=== PATIENT | female | born 1940 | race Caucasian/White ===

== ENCOUNTER 2022-10-18 17:08 | Inpatient (IN) | payer OTHER ==
[2022-10-18] MEDS ORDERED: TETANUS AND DIPHTHERIA TOXOID 0.5 ML DISP.SYRIN IM ONE (18:28)
[2022-10-18] MEDS ORDERED: DIPHTH,PERTUSS(ACELL),TET 0.5 ML DISP.SYRIN IM ONE (20:09)
[2022-10-18 20:24] LABS: BASO % 0.2 % (0-2.0); EOS % 2.1 % (0-4.5); LYMPH % 24.7 % (8-40); MCH 31.5 pg (25.7-33.7); MCHC 34.2 g/dl (32.0-36.0); MEAN CELL VOLUME 91.9 fl (80-96); MEAN PLT VOLUME 7.9 fl (7.5-11.1); MONO % 10.1 % (3.8-10.2); NEUT % 62.9 % (42.8-82.8); PLATELET COUNT 161 10^3/uL (134-434); RBC 4.46 M/mm3 (3.60-5.2); RDW 13.9 % (11.6-15.6); WHITE BLOOD COUNT 7.2 K/mm3 (4.0-10.0)
[2022-10-18] MEDS ORDERED: MELATONIN 5 MG TABLETS PO ONE (20:35)
[2022-10-18 20:37] LABS: POTASSIUM 4.9 mmol/L (3.5-5.1)
[2022-10-18] MEDS ORDERED: MELATONIN 5 MG TABLETS ONE (20:38)
[2022-10-18 20:39] LABS: CALCIUM 8.7 mg/dL (8.5-10.1)
[2022-10-18 20:40] LABS: ALBUMIN 3.5 g/dl (3.4-5.0); BLOOD UREA NITROGEN 14.3 mg/dL (7-18)
[2022-10-18 20:43] LABS: CREATININE 0.7 mg/dL (0.55-1.3)
[2022-10-18 20:45] LABS: BILIRUBIN,TOTAL 0.4 mg/dL (0.2-1); TOT PROT 7.2 g/dl (6.4-8.2)
[2022-10-19 01:33] LABS: EPI CELLS 7 /uL (0-25.1); HYALINE CASTS 1 /uL (0-3.1); PH,URINE 5.5 (5.0-8.0); URINE APPEARANCE CLEAR; URINE BACTERIA 30 /uL (0-1359); URINE BILIRUBIN NEGATIVE (NEGATIVE); URINE COLOR YELLOW; URINE GLUCOSE (UA) NEGATIVE (NEGATIVE); URINE KETONE NEGATIVE (NEGATIVE); URINE LEUK ESTERASE TRACE (NEGATIVE); URINE NITRITE NEGATIVE (NEGATIVE); URINE PROTEIN NEGATIVE (NEGATIVE); URINE RBC 2 /uL (0-23.9); URINE UROBILINOGEN 0.2 mg/dL (0.2-1.0); URINE WBC 6 /uL (0-25.8)
[2022-10-19 01:44] LABS: PHENCYCLIDINE,URINE NEGATIVE (NEGATIVE); URINE BENZODIAZEPINES NEGATIVE (NEGATIVE)
[2022-10-19 01:55] LABS: COCAINE, UR NEGATIVE (NEGATIVE); METHADONE, UR NEGATIVE (NEGATIVE); OPIATES, URI POSITIVE (NEGATIVE); URINE AMPHETAMINES NEGATIVE (NEGATIVE); URINE BARBITURATES NEGATIVE (NEGATIVE)
[2022-10-19 07:14] LABS: HEMOGLOBIN 13.9 GM/dL (10.7-15.3); MCH 30.8 pg (25.7-33.7); MCHC 33.2 g/dl (32.0-36.0); MEAN CELL VOLUME 92.9 fl (80-96); MEAN PLT VOLUME 8.6 fl (7.5-11.1); PLATELET COUNT 160 10^3/uL (134-434); RBC 4.52 M/mm3 (3.60-5.2); RDW 13.4 % (11.6-15.6); WHITE BLOOD COUNT 6.4 K/mm3 (4.0-10.0)
[2022-10-19 07:33] LABS: POTASSIUM 4.3 mmol/L (3.5-5.1)
[2022-10-19 07:37] LABS: BLOOD UREA NITROGEN 12.2 mg/dL (7-18); CALCIUM 8.6 mg/dL (8.5-10.1)
[2022-10-19 07:38] LABS: ALBUMIN 3.4 g/dl (3.4-5.0)
[2022-10-19 07:41] LABS: CREATININE 0.6 mg/dL (0.55-1.3)
[2022-10-19 07:42] LABS: BILIRUBIN,TOTAL 1.1 mg/dL (0.2-1); TOT PROT 6.8 g/dl (6.4-8.2)
[2022-10-19] MEDS ORDERED: ENOXAPARIN NA (PORCINE) 40 MG/0.4 ML DISP.SYRIN SQ SCH (10:00)
[2022-10-19 16:37] VITALS: BMI 19.9
[2022-10-19] MEDS ORDERED: QUEtiapine FUMARATE 25 MG TABLET PO ONE (19:37)
[2022-10-20] MEDS: QUEtiapine FUMARATE 25 MG TABLET PO SCH ×2 (09:10→22:07)
[2022-10-20 11:14] LABS: BASO % 0.4 % (0-2.0); EOS % 0.9 % (0-4.5); HEMATOCRIT 45.5 % (32.4-45.2); HEMOGLOBIN 15.3 GM/dL (10.7-15.3); MCH 30.8 pg (25.7-33.7); MCHC 33.8 g/dl (32.0-36.0); MEAN CELL VOLUME 91.1 fl (80-96); MEAN PLT VOLUME 8.1 fl (7.5-11.1); MONO % 13.4 % (3.8-10.2); NEUT % 69.3 % (42.8-82.8); PLATELET COUNT 158 10^3/uL (134-434); RBC 4.99 M/mm3 (3.60-5.2); RDW 13.6 % (11.6-15.6); WHITE BLOOD COUNT 5.9 K/mm3 (4.0-10.0)
[2022-10-20 11:31] LABS: INR 1.06 (0.83-1.09); PROTHROMBIN TIME (PATIENT) 12.3 SEC (9.7-13.0)
[2022-10-20 11:33] LABS: ACTIVATED PTT 27.3 SECONDS (25.2-36.5)
[2022-10-20 11:45] LABS: BLOOD UREA NITROGEN 11.9 mg/dL (7-18)
[2022-10-20 11:46] LABS: ALBUMIN 3.2 g/dl (3.4-5.0); CALCIUM 8.9 mg/dL (8.5-10.1)
[2022-10-20 11:47] LABS: MAGNESIUM 2.3 mg/dL (1.8-2.4)
[2022-10-20 11:49] LABS: PHOSPHOROUS 2.8 mg/dL (2.5-4.9)
[2022-10-20 11:50] LABS: CREATININE 0.8 mg/dL (0.55-1.3); TOT PROT 6.7 g/dl (6.4-8.2)
[2022-10-20 11:51] LABS: BILIRUBIN,TOTAL 0.9 mg/dL (0.2-1)
[2022-10-20] MEDS: AMINO ACIDS/PROTEIN HYDROLYS 30 ML LIQUID.PKT PO SCH (18:26)
[2022-10-20] MEDS: THIAMINE HCL 100 MG TABLET (FP) PO SCH (22:07)
[2022-10-21] MEDS: AMINO ACIDS/PROTEIN HYDROLYS 30 ML LIQUID.PKT PO SCH ×2 (09:17→18:59)
[2022-10-21] MEDS: QUEtiapine FUMARATE 25 MG TABLET PO SCH ×2 (09:17→21:15)
[2022-10-21] MEDS: MULTIVITAMINS (DAILY MVI) TABLET (FP) PO SCH (09:17)
[2022-10-21 11:04] LABS: BASO % 0.3 % (0-2.0); EOS % 1.9 % (0-4.5); HEMATOCRIT 44.4 % (32.4-45.2); HEMOGLOBIN 15.4 GM/dL (10.7-15.3); LYMPH % 24.2 % (8-40); MCH 31.8 pg (25.7-33.7); MCHC 34.6 g/dl (32.0-36.0); MEAN CELL VOLUME 91.7 fl (80-96); MEAN PLT VOLUME 8.5 fl (7.5-11.1); MONO % 12.1 % (3.8-10.2); NEUT % 61.5 % (42.8-82.8); PLATELET COUNT 170 10^3/uL (134-434); RBC 4.84 M/mm3 (3.60-5.2); RDW 13.5 % (11.6-15.6); WHITE BLOOD COUNT 5.9 K/mm3 (4.0-10.0)
[2022-10-21 11:29] LABS: POTASSIUM 4.3 mmol/L (3.5-5.1)
[2022-10-21 11:35] LABS: BLOOD UREA NITROGEN 16.3 mg/dL (7-18); CALCIUM 8.7 mg/dL (8.5-10.1); MAGNESIUM 2.2 mg/dL (1.8-2.4)
[2022-10-21 11:36] LABS: ALBUMIN 3.2 g/dl (3.4-5.0)
[2022-10-21 11:38] LABS: CREATININE 0.8 mg/dL (0.55-1.3)
[2022-10-21 11:40] LABS: BILIRUBIN,TOTAL 0.8 mg/dL (0.2-1); TOT PROT 6.7 g/dl (6.4-8.2)
[2022-10-21] MEDS: THIAMINE HCL 100 MG TABLET (FP) PO SCH (21:15)
[2022-10-22] MEDS: MULTIVITAMINS (DAILY MVI) TABLET (FP) PO SCH (09:06)
[2022-10-22] MEDS: AMINO ACIDS/PROTEIN HYDROLYS 30 ML LIQUID.PKT PO SCH (09:06)
[2022-10-22] MEDS: QUEtiapine FUMARATE 25 MG TABLET PO SCH (09:09)
[2022-10-22 11:34] LABS: BASO % 0.2 % (0-2.0); EOS % 0.9 % (0-4.5); HEMATOCRIT 42.4 % (32.4-45.2); HEMOGLOBIN 14.8 GM/dL (10.7-15.3); LYMPH % 15.8 % (8-40); MCH 31.4 pg (25.7-33.7); MCHC 34.8 g/dl (32.0-36.0); MEAN CELL VOLUME 90.2 fl (80-96); MEAN PLT VOLUME 8.5 fl (7.5-11.1); MONO % 17.1 % (3.8-10.2); PLATELET COUNT 180 10^3/uL (134-434); RBC 4.71 M/mm3 (3.60-5.2); RDW 13.4 % (11.6-15.6); WHITE BLOOD COUNT 6.4 K/mm3 (4.0-10.0)
[2022-10-22 11:55] LABS: POTASSIUM 4.1 mmol/L (3.5-5.1)
[2022-10-22 12:00] LABS: CALCIUM 8.6 mg/dL (8.5-10.1)
[2022-10-22 12:02] LABS: BLOOD UREA NITROGEN 19.8 mg/dL (7-18); MAGNESIUM 2.2 mg/dL (1.8-2.4)
[2022-10-22 12:05] LABS: CREATININE 0.7 mg/dL (0.55-1.3)
[2022-10-22 12:06] LABS: TOT PROT 6.6 g/dl (6.4-8.2)
[2022-10-22 12:07] LABS: BILIRUBIN,TOTAL 0.7 mg/dL (0.2-1)
[2022-10-22 14:28] VITALS: BP 120/72; PULSE 94; RESP 18; TEMP 98.1
== END 2022-10-22 15:26 | disposition home health service (06) | DRG 91 ==
LOC: JER 17:08 → JERBED 21:32 → UNDOADMOB 21:32 → OBSVTOIN 21:32 → INTOOBSV 21:32 → OBSVTOIN 22:08 → JERBED 22:08 → J8W 10-19 15:31
PROVIDERS: ADMIT Internal Medicine; ATTEND Nurse Practitioner Family
DX: R26.0 Ataxic gait (principal); G93.41 Metabolic encephalopathy; E46 Unspecified protein-calorie malnutrition; Z68.1 Body mass index [BMI] 19.9 or less, adult; R29.6 Repeated falls; R41.0 Disorientation, unspecified
CPT/HCPCS: 36415; 70450-TC; 70551-TC; 71045-TC-FY; 72125-TC; 72170-TC-FY; 80053; 80307; 81003; 82607; 82962; 83735; 84100; 84443; 84484; 85025; 85027; 85610; 85730; 86780; 87086; 93005; 93010; 93306-TC; 93880-TC; 97116-GP; 99285-25

== ENCOUNTER 2023-09-29 18:59 | Emergency (ER) | payer OTHER ==
[2023-09-29 19:26] VITALS: BP 145/75; PULSE 74; RESP 17; TEMP 98.1; BMI 22.6
== END 2023-09-29 19:35 | disposition home or self-care (01) ==
LOC: FER 18:59
DX: F10.920 Alcohol use, unspecified with intoxication, uncomplicated (principal); Y90.9 Presence of alcohol in blood, level not specified
CPT/HCPCS: 99282-25

== ENCOUNTER 2024-08-15 11:26 | Emergency (ER) | payer OTHER ==
[2024-08-15 11:35] VITALS: BP 150/56; PULSE 112; RESP 18; TEMP 98.2
[2024-08-15] MEDS ORDERED: DIPHTH,PERTUSS(ACELL),TET 0.5 ML DISP.SYRIN IM ONE (12:22)
[2024-08-15 13:45] LABS: MEAN CELL VOLUME 89.8 fl (79.4-94.8)
[2024-08-15 13:46] LABS: INR 1.19 (0.83-1.09); PROTHROMBIN TIME (PATIENT) 13.2 SEC (9.7-13.0)
[2024-08-15 13:48] LABS: ACTIVATED PTT 23.9 SECONDS (25.2-36.5)
[2024-08-15 13:49] LABS: MCHC 33.3 g/dl (32.2-35.5); MEAN PLT VOLUME 12.2 fl (9.4-12.3); RDW 15.0 % (12.5-17.0)
[2024-08-15 13:59] LABS: ALK PHOS 122 U/L (45-117); CO2 23 mmol/L (21-32); CREATININE 0.7 mg/dl (0.6-1.3); GLUCOSE,RANDOM 115 mg/dl (74-106); SGOT/AST 41 U/L (15-37); SGPT/ALT 21 U/L (7-52); TOT PROT 7.0 g/dl (6.4-8.2)
[2024-08-15 14:12] LABS: URINE MUCUS FEW
== END 2024-08-15 15:16 | disposition home or self-care (01) ==
LOC: FER 11:26
PROC: 2W3DX1Z Immobilization of Left Lower Arm using Splint (ICD-10-PCS; principal; 2024-08-15)
DX: S62.317A Displaced fracture of base of fifth metacarpal bone, left hand, initial encounter for closed fracture (principal); S02.2XXA Fracture of nasal bones, initial encounter for closed fracture; R94.31 Abnormal electrocardiogram [ECG] [EKG]; W01.0XXA Fall on same level from slipping, tripping and stumbling without subsequent striking against object, initial encounter; Y92.009 Unspecified place in unspecified non-institutional (private) residence as the place of occurrence of the external cause
CPT/HCPCS: 36415; 70450-TC; 70486-TC; 71045-TC-FY; 72125-TC; 72170-TC-FY; 73110-TC-LT-FY; 73130-TC-LT-FY; 73590-TC-LT-FY; 80053; 81003; 81015; 84484; 85025; 85610; 85730; 86850; 86900; 86901; 87086; 93005; 99285-25